=== PATIENT | female | born 1985 | race Caucasian/White ===

== ENCOUNTER 2016-12-19 10:15 | Observation (INO) | payer OTHER ==
[~2016-12-19] VITALS: Ht 160 cm; Wt 72.6 kg
[2016-12-19] MEDS ORDERED: OSC500 PO (10:53)
[2016-12-19] MEDS ORDERED: PREN-380 PO (10:53)
[2016-12-19 10:55] VITALS: BP 119/75
== END 2016-12-19 12:55 | disposition home or self-care (01) ==
LOC: MLD 10:15
PROVIDERS: ADMIT Obstetrics & Gynecology; ATTEND Obstetrics & Gynecology
DX: O36.8130 Decreased fetal movements, third trimester, not applicable or unspecified (principal); Z3A.40 40 weeks gestation of pregnancy
CPT/HCPCS: 59025; 76805; G0378; Q0092

== ENCOUNTER 2016-12-22 13:44 | Observation (INO) | payer OTHER ==
[~2016-12-22 13:44] MED LIST: OSC500 PO; PREN-380 PO
[2016-12-22 14:38] VITALS: BP 111/74
== END 2016-12-22 17:55 | disposition home or self-care (01) ==
LOC: MLD 13:44
PROVIDERS: ADMIT Obstetrics & Gynecology; ATTEND Obstetrics & Gynecology
DX: O36.8130 Decreased fetal movements, third trimester, not applicable or unspecified (principal); Z3A.40 40 weeks gestation of pregnancy
CPT/HCPCS: 59025; 76819; 81000; G0378; Q0092

== ENCOUNTER 2016-12-25 12:51 | Observation (INO) | payer OTHER ==
[2016-12-25 13:48] VITALS: BP 106/60
== END 2016-12-25 15:45 | disposition left against medical advice (07) ==
LOC: MLD 12:51
PROVIDERS: ADMIT Obstetrics & Gynecology; ATTEND Obstetrics & Gynecology
DX: O62.9 Abnormality of forces of labor, unspecified (principal); Z3A.40 40 weeks gestation of pregnancy
CPT/HCPCS: 59025; 76819; G0378; Q0092